=== PATIENT | female | born 1980 | race Caucasian/White ===

== ENCOUNTER 2019-03-31 08:58 | Emergency (ER) | payer OTHER ==
[~2019-03-31] VITALS: Ht 170.2 cm; Wt 74.8 kg
[2019-03-31] MEDS ORDERED: LEVSOD125 PO (09:21)
[2019-03-31] MEDS ORDERED: METPRE4DP PO (09:36)
[2019-03-31] MEDS ORDERED: BENADRYL25 MG PO (09:36)
== END 2019-03-31 09:57 | disposition home or self-care (01) ==
LOC: ER 08:58
DX: S00.262A Insect bite (nonvenomous) of left eyelid and periocular area, initial encounter (principal); L08.9 Local infection of the skin and subcutaneous tissue, unspecified; W57.XXXA Bitten or stung by nonvenomous insect and other nonvenomous arthropods, initial encounter; Z88.5 Allergy status to narcotic agent; Z91.040 Latex allergy status; Z79.899 Other long term (current) drug therapy; F17.200 Nicotine dependence, unspecified, uncomplicated
CPT/HCPCS: 99283; J1100

== ENCOUNTER → 2019-05-07 | Outpatient (CLI) | payer OTHER ==
[~2019-05-07] MED LIST: BENADRYL25 MG PO; CYCL10 PO; LEVSOD125 PO; METPRE4DP PO; Voltaren100 GM TOP
== END | disposition home or self-care (01) ==
LOC: LAB EV 12:36 → LAB SHORT 12:36
DX: L72.3 Sebaceous cyst (principal)
CPT/HCPCS: 87070; 87075; 87205

== ENCOUNTER 2019-05-20 21:07 | Emergency (ER) | payer OTHER ==
[~2019-05-20] VITALS: Ht 167.6 cm; Wt 81.7 kg
[~2019-05-20 21:07] MED LIST changes: -CYCL10 PO; -Voltaren100 GM TOP
[2019-05-20 22:16] LABS: BASOPHILS ABSOLUTE AUTO 0.03 K/mm3 (0.00-0.23); BASOPHILS PERCENT AUTO 0 % (0-2); EOSINOPHILS ABSOLUTE AUTO 0.78 K/mm3 (0.00-0.68); EOSINOPHILS PERCENT AUTO 11 % (0-6); Hematocrit 41.3 % (33.0-51.0); Hemoglobin 13.6 g/dL (11.5-16.0); IMMATURE GRAN ABSOLUTE AUTO 0.03 K/mm3 (0.00-0.10); IMMATURE GRAN PERCENT AUTO 0 % (0-1); LYMPHOCYTES ABSOLUTE AUTO 2.55 K/mm3 (0.84-5.20); LYMPHOCYTES PERCENT AUTO 36 % (21-46); MONOCYTES ABSOLUTE AUTO 0.48 K/mm3 (0.16-1.47); MONOCYTES PERCENT AUTO 7 % (4-13); Mean Corpuscular HGB 31.2 pg (26.0-34.0); Mean Corpuscular HGB Conc 32.9 g/dL (31.5-36.5); Mean Corpuscular Volume 95 fL (80-100); Mean Platelet Volume 10.3 fL (9.1-12.4); NEUTROPHILS ABSOLUTE AUTO 3.15 K/mm3 (1.96-9.15); NEUTROPHILS PERCENT AUTO 45 % (41-73); Platelet Count 204 K/mm3 (150-400); RDW Coefficient Variation 13.1 % (11.7-14.2); RDW Standard Deviation 46.3 fL (35.1-46.3); Red Blood Cell Count 4.36 M/mm3 (3.80-5.20); White Blood Cell Count 7.02 K/mm3 (4.00-11.30)
[2019-05-20 22:35] LABS: Alanine Aminotransfer (ALT/SGP 23 U/L (12-78); Albumin/Globulin Ratio 1.3 (0.8-1.8); Alk Phos 50 U/L (50-136); Anion Gap 7 mmol/L (6-16); Aspartate Aminotrans (AST/SGOT 10 U/L (12-37); Bilirubin, Total 0.1 mg/dL (0.1-1.0); Blood Urea Nitrogen 11 mg/dL (8-24); Bun/Creatinine Ratio 14.3 (12.0-20.0); CO2, Blood 27 mmol/L (21-32); Calcium, Blood 8.4 mg/dL (8.5-10.1); Chloride, Blood 110 mmol/L (98-108); Creatinine, Blood 0.77 mg/dL (0.40-1.00); Globulin, Blood 3.1 g/dL (2.2-4.0); Glomerular Filtration Rate >60 (60-); Glucose, Blood 98 mg/dL (70-99); Potassium, Blood 3.7 mmol/L (3.5-5.5); Sodium, Blood 144 mmol/L (136-145); Total Protein, Blood 7.1 g/dL (6.4-8.2); Troponin I <0.015 ng/mL (0.000-0.040)
[2019-05-21] MEDS ORDERED: Voltaren100 GM TOP (00:05)
[2019-05-21] MEDS ORDERED: CYCL10 PO (00:05)
== END 2019-05-21 00:49 | disposition home or self-care (01) ==
LOC: ER 21:07
PROVIDERS: Physician Assistant
DX: M25.511 Pain in right shoulder (principal); R07.89 Other chest pain; Z88.0 Allergy status to penicillin; Z91.040 Latex allergy status; Z79.899 Other long term (current) drug therapy; Z79.891 Long term (current) use of opiate analgesic; F17.200 Nicotine dependence, unspecified, uncomplicated
CPT/HCPCS: 36415; 71046; 80053; 84484; 85025; 85379; 96374; 99283-25; A9270; J2270

== ENCOUNTER → 2019-07-23 | Outpatient (CLI) | payer OTHER ==
[~2019-07-23] MED LIST changes: +CYCL10 PO; +Voltaren100 GM TOP
== END | disposition home or self-care (01) ==
LOC: LAB EV 13:19 → LAB SHORT 13:19
DX: E03.9 Hypothyroidism, unspecified (principal)
CPT/HCPCS: 84443

== ENCOUNTER 2020-04-19 10:10 | Emergency (ER) | payer OTHER ==
[~2020-04-19] VITALS: Ht 167.6 cm; Wt 90.7 kg
== END 2020-04-19 12:26 | disposition home or self-care (01) ==
LOC: ER 10:10
DX: S92.511K Displaced fracture of proximal phalanx of right lesser toe(s), subsequent encounter for fracture with nonunion (principal); F17.200 Nicotine dependence, unspecified, uncomplicated
CPT/HCPCS: 73630; 99282-25

== ENCOUNTER 2020-05-28 14:35 | Emergency (ER) | payer OTHER ==
[~2020-05-28] VITALS: Ht 170.2 cm; Wt 89.4 kg
== END 2020-05-28 15:57 | disposition home or self-care (01) ==
LOC: ER 14:35
DX: S89.92XA Unspecified injury of left lower leg, initial encounter (principal); E03.9 Hypothyroidism, unspecified; F17.200 Nicotine dependence, unspecified, uncomplicated; Z88.5 Allergy status to narcotic agent; Z91.040 Latex allergy status; Z79.899 Other long term (current) drug therapy; X58.XXXA Exposure to other specified factors, initial encounter
CPT/HCPCS: 73562-LT; 99283-25

== ENCOUNTER 2021-05-31 07:41 | Emergency (ER) | payer OTHER ==
[~2021-05-31] VITALS: Ht 170.2 cm; Wt 88.5 kg
[2021-05-31] MEDS ORDERED: ONDA4ODT MM (08:32)
== END 2021-05-31 08:42 | disposition home or self-care (01) ==
LOC: ER 07:41
DX: U07.1 COVID-19 (principal); F17.200 Nicotine dependence, unspecified, uncomplicated; Z88.2 Allergy status to sulfonamides; Z88.5 Allergy status to narcotic agent; Z91.040 Latex allergy status; Z79.899 Other long term (current) drug therapy
CPT/HCPCS: 99284

== ENCOUNTER 2023-11-08 12:06 | Day surgery (SDC) | payer OTHER ==
[~2023-11-08] VITALS: Ht 167.6 cm; Wt 90.7 kg
[~2023-11-08 12:06] MED LIST changes: +AMIT25 PO; +FAMO20 PO; +LEVSOD112 PO; -LEVSOD125 PO; +Lactated Ringer's 1,000 ML IV ONE; +Norco 10-325 T1 EACH; +ONDA4ODT MM; +propofoL 50 ML IV ONE
[2023-11-08] MEDS ORDERED: PANT20 (12:26)
[2023-11-08] MEDS ORDERED: AMIT50 (12:27)
[2023-11-08] MEDS ORDERED: HYDPAM50 (12:28)
[2023-11-08] MEDS ORDERED: TIZANIDINE HCL2 M1 (12:28)
[2023-11-08] MEDS ORDERED: Lactated Ringer's 1,000 ML IV ONE (12:44)
[2023-11-08 13:54] VITALS: BP 118/78
--- NOTE | 2023-11-08 14:15 | NUR ---
11/08/23 1415 FABIANO RODRÍGUEZ ALL CHARTING UNDER TMG IS RN:HESHAM. END NOTE
== END 2023-11-08 13:52 | disposition home or self-care (01) ==
LOC: ORSCSDS 12:06
PROVIDERS: Specialist
PROC: 0DB58ZX Excision of Esophagus, Via Natural or Artificial Opening Endoscopic, Diagnostic (ICD-10-PCS; principal; 2023-11-08 13:15)
PROC: 0DB68ZX Excision of Stomach, Via Natural or Artificial Opening Endoscopic, Diagnostic (ICD-10-PCS; principal; 2023-11-08 13:15)
DX: K21.9 Gastro-esophageal reflux disease without esophagitis (principal); K22.10 Ulcer of esophagus without bleeding; F17.210 Nicotine dependence, cigarettes, uncomplicated; K44.9 Diaphragmatic hernia without obstruction or gangrene; K31.89 Other diseases of stomach and duodenum; Z79.899 Other long term (current) drug therapy
CPT/HCPCS: 88305; 88342; J2704; J7120